=== PATIENT | male | born 1970 | race Two or more races ===

== ENCOUNTER 2023-05-06 05:40 | Emergency (ER) | payer OTHER ==
[~2023-05-06] VITALS: Ht 180.3 cm; Wt 74.8 kg
[2023-05-06 05:46] VITALS: BP 140/90; PULSE 83; RESP 18; O2SAT 100
--- NOTE | 2023-05-06 05:46 | NUR ---
TO BED AMBULATORY
--- NOTE | 2023-05-06 06:14 | NUR ---
Patient being evaluated by physician at bedside.
[2023-05-06] MEDS ORDERED: LORazepam 1 MG TAB PO ONE (06:30)
[2023-05-06] MEDS ORDERED: ASPIRIN 81 MG TAB.CHEW PO ONE (06:30)
[2023-05-06 07:31] VITALS: BP 132/74; PULSE 82; RESP 19; TEMP 98.2; O2SAT 100
--- NOTE | 2023-05-06 07:32 | NUR ---
Patient discharged with v/s stable. Written and verbal after care instructions given and explained. Patient verbalized understanding. Ambulatory with steady gait. All questions addressed prior to discharge. Advised to follow up with PMD.
== END 2023-05-06 07:32 | disposition home or self-care (01) ==
LOC: MED 05:40
DX: F41.0 Panic disorder [episodic paroxysmal anxiety] (principal); R07.9 Chest pain, unspecified; G47.00 Insomnia, unspecified; F17.200 Nicotine dependence, unspecified, uncomplicated
CPT/HCPCS: 71045; 93005; 99283; Q0092

== ENCOUNTER 2023-05-19 10:37 | Emergency (ER) | payer OTHER ==
[~2023-05-19] VITALS: Ht 180.3 cm; Wt 72.6 kg
[2023-05-19 11:18] VITALS: BP 133/86; PULSE 87; RESP 17; TEMP 98.3; O2SAT 97
--- NOTE | 2023-05-19 11:50 | NUR ---
AMBULATED TO BED 11. SITTING UP "FEELS THE SAME WAY YESTERDAY"
[2023-05-19] MEDS ORDERED: LORazepam 1 MG TAB PO ONE ×2 (12:30→13:00)
--- NOTE | 2023-05-19 13:07 | NUR ---
PT REQUESTED MORE MEDS, ATIVAN DID NOT HELP
[2023-05-19 13:08] VITALS: BP 133/86; PULSE 87; RESP 17; TEMP 98.3; O2SAT 97
== END 2023-05-19 13:12 | disposition home or self-care (01) ==
LOC: MED 10:37
DX: F41.9 Anxiety disorder, unspecified (principal)
CPT/HCPCS: 93005; 99283

== ENCOUNTER 2024-01-02 03:18 | Emergency (ER) | payer OTHER ==
[~2024-01-02] VITALS: Ht 177.8 cm; Wt 68.0 kg
[2024-01-02 03:20] VITALS: BP 157/87; PULSE 67; RESP 17; TEMP 99.1; O2SAT 99
[2024-01-02] MEDS ORDERED: LORazepam 2 MG/ML VIAL IM ONE (03:25)
[2024-01-02] MEDS ORDERED: MORPHINE SULFATE 4 MG/ML SYR IM ONE (03:25)
[2024-01-02] MEDS ORDERED: NACL 0.9% 1,000 ML IV ONE (03:30)
[2024-01-02] MEDS ORDERED: LORazepam 2 MG/ML VIAL IVP ONE (03:30)
[2024-01-02] MEDS ORDERED: PANTOPRAZOLE 40 MG INJ VIAL IVP ONE (03:30)
[2024-01-02] MEDS ORDERED: MORPHINE SULFATE 4 MG/ML SYR IVP ONE (03:30)
[2024-01-02] MEDS ORDERED: LORazepam 2 MG/ML VIAL ONE (03:35)
[2024-01-02] MEDS ORDERED: MORPHINE SULFATE 4 MG/ML SYR ONE (03:35)
[2024-01-02] MEDS: MORPHINE SULFATE 4 MG/ML SYR IM ONE (03:43)
[2024-01-02] MEDS: LORazepam 2 MG/ML VIAL IM ONE (03:44)
[2024-01-02] MEDS: FAMOTIDINE 20 MG TAB PO ONE (03:45)
== END 2024-01-02 03:46 | disposition left against medical advice (07) ==
LOC: MED 03:18
DX: R10.9 Unspecified abdominal pain (principal); F41.9 Anxiety disorder, unspecified; K92.0 Hematemesis; F20.9 Schizophrenia, unspecified; Z86.69 Personal history of other diseases of the nervous system and sense organs
CPT/HCPCS: 96372; 99284; J2060; J2270